=== PATIENT | male | born 1965 | race Caucasian/White ===

== ENCOUNTER 2017-01-16 08:29 | Emergency (ER) | payer SELFPAY ==
[~2017-01-16] VITALS: Ht 175.3 cm; Wt 79.5 kg
[~2017-01-16 08:29] MED LIST: ADVIL200 MG PO; ASPIRIN 32325 MG/TAB PO; ASPIRIN 81M81 MG/TA2 PO; EFFIENT10 MG PO; IMDUR 30MG30 MG/TAB PO; KLONOPIN 0.5MG0.5 MG PO; LOPRESSOR 550 MG/TAB PO; LORTAB 5/500 501 TAB PO; MOTRIN 800800 MG/TAB PO; MOTRIN800 MG PO; NAPROSYN500 MG PO; NO HOME MEDICATIONS; NORCO 325 MG-51 TAB PO; PERCOCET 5/321 UDTAB PO; PLAVIX 75MG TAB75 MG PO; PRAVACHOL 40MG40 MG PO; PRIL40 PO; TOPROL XL 25MG25 MG PO; TOPROL XL 50MG50 MG PO; TOPROL XL50 MG PO; TYLENOL 500MG500 MG PO; VALIUM 5MG T5 MG/TAB PO; ZESTRIL2.5 MG PO; ZOCOR80 MG PO
[2017-01-16 08:31] VITALS: TEMP 98
[2017-01-16 09:22] LABS: PROTHROMBIN TIME 11.5 SECONDS (9.7-12.8)
[2017-01-16 09:31] LABS: ADJUSTED CALCIUM 9.5 mg/dL (8.4-10.2); ALBUMIN 4.3 gm/dL (3.5-5.0); BASO # 0.1 (0.0-0.2); BASO % 1.1 % (0.0-2.0); BILIRUBIN,TOTAL 0.9 mg/dL (0.0-1.0); CALCIUM 9.7 mg/dL (8.4-10.2); CREATININE, serum 1.14 mg/dL (0.66-1.25); EOS # 0.2 (0.0-0.7); EOS % 1.7 % (0-4.0); GRAN % 73.3 % (42.2-75.2); HEMATOCRIT 48.6 % (42.0-52.0); HEMOGLOBIN 16.2 g/dl (13.5-18.0); LYMPH # 1.7 (1.2-3.4); LYMPH % 17.5 % (20.0-51.0); MEAN CELL VOLUME 85 fl (80.0-100.0); MEAN CORPUSCULAR HEMOGLOBIN 28 pg (27.0-31.0); MEAN CORPUSCULAR HGB CONC 33 g/dl (33.0-37.0); MEAN PLATELET VOLUME 10.4 fl (7.4-10.4); MONO # 0.6 (0.1-0.6); MONO % 6.2 % (1.7-9.3); PLATELET COUNT 284 K/mm3 (130-400); POTASSIUM 4.9 mmol/L (3.4-5.0); RED BLOOD COUNT 5.71 M/mm3 (4.20-5.60); REDCELL DISTRIBUTION WIDTH-CV 13.7 % (11.5-14.5); TOTAL PROTEIN 7.7 gm/dL (6.4-8.2); WHITE BLOOD COUNT 9.5 K/mm3 (4.8-10.8)
[2017-01-16 09:45] LABS: TROPONIN-I 0.331 ng/mL (0.000-0.034)
[2017-01-16 09:55] LABS: ERYTHROCYTE SEDIMENTATION RATE 7 mm/hr (0-15)
[2017-01-16 12:07] VITALS: BP 151/77; PULSE 73
[2017-01-17] MEDS ORDERED: ASPIRIN 81M81 MG/TA2 PO (12:50)
[2017-01-17] MEDS ORDERED: IMDUR 60MG60 MG/TAB PO (12:50)
[2017-01-17] MEDS ORDERED: NITROSTAT0.4 MG/TAB SL (12:50)
[2017-01-17] MEDS ORDERED: LIPITOR 80MG80 MG PO (12:51)
== END 2017-01-16 10:41 | disposition left against medical advice (07) ==
LOC: COL.ER 08:29
PROVIDERS: Emergency Medicine
DX: I21.4 Non-ST elevation (NSTEMI) myocardial infarction (principal); Z53.21 Procedure and treatment not carried out due to patient leaving prior to being seen by health care provider; Z79.02 Long term (current) use of antithrombotics/antiplatelets; Z79.82 Long term (current) use of aspirin; Z98.61 Coronary angioplasty status; I25.2 Old myocardial infarction

== ENCOUNTER 2017-01-17 08:37 | Day surgery (SDC) | payer SELFPAY ==
[~2017-01-17] VITALS: Ht 175.3 cm; Wt 81.8 kg
[2017-01-17] VITALS (10 sets, daily range): BP systolic 107–137; BP diastolic 79–91; PULSE 72–89; TEMP 97.6
[2017-01-17] MEDS ORDERED: NITROSTAT0.4 MG/TAB SL (12:50)
[2017-01-17] MEDS ORDERED: ASPIRIN 81M81 MG/TA2 PO (12:50)
[2017-01-17] MEDS ORDERED: IMDUR 60MG60 MG/TAB PO (12:50)
[2017-01-17] MEDS ORDERED: LIPITOR 80MG80 MG PO (12:51)
== END 2017-01-17 15:49 | disposition home or self-care (01) ==
LOC: COL.RAD 08:37
DX: I21.4 Non-ST elevation (NSTEMI) myocardial infarction (principal); I25.118 Atherosclerotic heart disease of native coronary artery with other forms of angina pectoris; I10 Essential (primary) hypertension; E78.5 Hyperlipidemia, unspecified; Z79.82 Long term (current) use of aspirin; Z79.899 Other long term (current) drug therapy; Z87.891 Personal history of nicotine dependence; Z95.5 Presence of coronary angioplasty implant and graft
CPT/HCPCS: J2250; J3010; Q9967

== ENCOUNTER 2017-05-23 12:53 | Emergency (ER) | payer SELFPAY ==
[~2017-05-23] VITALS: Ht 172.7 cm; Wt 77.3 kg
[~2017-05-23 12:53] MED LIST changes: +IMDUR 60MG60 MG/TAB PO; +LIPITOR 80MG80 MG PO; +NITROSTAT0.4 MG/TAB SL
[2017-05-23 12:55] VITALS: BP 141/88; TEMP 98.5
[2017-05-23 14:25] LABS: C-REACTIVE PROTEIN 1.6 mg/dL (0.0-0.9); CALCIUM 9.9 mg/dL (8.4-10.2); CREATININE, serum 1.1 mg/dL (0.66-1.25); HEMATOCRIT 45.4 % (42.0-52.0); HEMOGLOBIN 15.3 g/dl (13.5-18.0); MEAN CELL VOLUME 84 fl (80.0-100.0); MEAN CORPUSCULAR HEMOGLOBIN 28 pg (27.0-31.0); MEAN CORPUSCULAR HGB CONC 34 g/dl (33.0-37.0); MEAN PLATELET VOLUME 10.9 fl (7.4-10.4); PLATELET COUNT 254 K/mm3 (130-400); POTASSIUM 4.2 mmol/L (3.4-5.0); RED BLOOD COUNT 5.41 M/mm3 (4.20-5.60); REDCELL DISTRIBUTION WIDTH-CV 13.3 % (11.5-14.5)
[2017-05-23] MEDS ORDERED: NORCO 325 MG-51 TAB PO (14:42)
[2017-05-23] MEDS ORDERED: FLEXERIL 1010 MG/TAB PO (14:42)
[2017-05-23] MEDS ORDERED: ZOFRAN 4MG T4 MG/TAB PO (15:03)
[2017-05-23 15:07] VITALS: PULSE 84
== END 2017-05-23 15:07 | disposition home or self-care (01) ==
LOC: COL.ER 12:53
PROVIDERS: Physician Assistant Medical
DX: M25.511 Pain in right shoulder (principal); K21.9 Gastro-esophageal reflux disease without esophagitis; F17.210 Nicotine dependence, cigarettes, uncomplicated; Z79.02 Long term (current) use of antithrombotics/antiplatelets; Z95.9 Presence of cardiac and vascular implant and graft, unspecified
CPT/HCPCS: J1885; J2360

== ENCOUNTER 2017-05-26 09:20 | Emergency (ER) | payer SELFPAY ==
[~2017-05-26] VITALS: Ht 172.7 cm; Wt 77.3 kg
[~2017-05-26 09:20] MED LIST changes: +FLEXERIL 1010 MG/TAB PO; +ZOFRAN 4MG T4 MG/TAB PO
[2017-05-26 09:25] VITALS: TEMP 98.1
[2017-05-26 10:16] LABS: BASO # 0.1 (0.0-0.2); BASO % 0.9 % (0.0-2.0); EOS # 0.1 (0.0-0.7); EOS % 0.9 % (0-4.0); GRAN # 7.2 (1.4-6.5); GRAN % 81.2 % (42.2-75.2); HEMATOCRIT 45.6 % (42.0-52.0); HEMOGLOBIN 14.9 g/dl (13.5-18.0); LYMPH % 11.5 % (20.0-51.0); MEAN CELL VOLUME 86 fl (80.0-100.0); MEAN CORPUSCULAR HEMOGLOBIN 28 pg (27.0-31.0); MEAN CORPUSCULAR HGB CONC 33 g/dl (33.0-37.0); MEAN PLATELET VOLUME 10.7 fl (7.4-10.4); MONO # 0.5 (0.1-0.6); MONO % 5.3 % (1.7-9.3); PLATELET COUNT 236 K/mm3 (130-400); RED BLOOD COUNT 5.29 M/mm3 (4.20-5.60); REDCELL DISTRIBUTION WIDTH-CV 13.2 % (11.5-14.5); WHITE BLOOD COUNT 8.9 K/mm3 (4.8-10.8)
[2017-05-26 10:33] LABS: ADJUSTED CALCIUM 9.3 mg/dL (8.4-10.2); ALANINE AMINOTRANSFERASE 48 U/L (21-72); ALBUMIN 4.1 gm/dL (3.5-5.0); ALKALINE PHOSPHATASE 75 U/L (50-136); ANION GAP 10 mmol/L (7-16); BILIRUBIN,TOTAL 0.6 mg/dL (0.0-1.0); BLOOD UREA NITROGEN 11 mg/dL (9-20); CALCIUM 9.4 mg/dL (8.4-10.2); CARBON DIOXIDE 25 mmol/L (22-30); CHLORIDE 104 mmol/L (98-107); CREATININE, serum 0.96 mg/dL (0.66-1.25); GLUCOSE 101 mg/dL (74-106); POTASSIUM 4.7 mmol/L (3.4-5.0); SODIUM 139 mmol/L (137-145); TOTAL PROTEIN 7.2 gm/dL (6.4-8.2)
[2017-05-26 10:45] LABS: TROPONIN-I < 0.012 ng/mL (0.000-0.034)
[2017-05-26 11:53] LABS: PH 8 (5-8); SQUAMOUS EPITHELIAL None Seen /hpf; URINE APPEARANCE Clear; URINE BACTERIA None Seen /hpf; URINE BILIRUBIN Negative (NEGATIVE); URINE BLOOD Negative (NEGATIVE); URINE COLOR Straw; URINE GLUCOSE Negative (NEGATIVE); URINE KETONE Negative (NEGATIVE); URINE RBC None Seen /hpf; URINE UROBILINOGEN Negative (NEGATIVE); URINE WBC None Seen /hpf
[2017-05-26] MEDS ORDERED: ANTIVERT 25MG25 MG PO (13:17)
[2017-05-26 13:19] VITALS: BP 125/92; PULSE 62
== END 2017-05-26 13:21 | disposition home or self-care (01) ==
LOC: COL.ER 09:20
PROVIDERS: Emergency Medicine
DX: R42 Dizziness and giddiness (principal); I25.10 Atherosclerotic heart disease of native coronary artery without angina pectoris; Z79.02 Long term (current) use of antithrombotics/antiplatelets

== ENCOUNTER 2018-01-09 12:02 | Emergency (ER) | payer SELFPAY ==
[~2018-01-09] VITALS: Ht 172.7 cm; Wt 81.8 kg
[~2018-01-09 12:02] MED LIST changes: +ANTIVERT 25MG25 MG PO
[2018-01-09 12:07] VITALS: TEMP 98.5
[2018-01-09] MEDS ORDERED: CARDIZEM CD 18180 MG PO (12:13)
[2018-01-09] MEDS ORDERED: PRAVACHOL80 MG PO (12:14)
[2018-01-09] MEDS ORDERED: XANAX 0.5MG0.5 MG PO (12:15)
[2018-01-09 13:04] LABS: BASO % 0.3 % (0.0-2.0); EOS # 0.2 (0.0-0.7); EOS % 1.2 % (0-4.0); GRAN # 9.9 (1.4-6.5); GRAN % 78.6 % (42.2-75.2); HEMATOCRIT 41.6 % (42.0-52.0); HEMOGLOBIN 13.8 g/dl (13.5-18.0); LYMPH # 1.3 (1.2-3.4); LYMPH % 10.5 % (20.0-51.0); MEAN CELL VOLUME 87 fl (80.0-100.0); MEAN CORPUSCULAR HEMOGLOBIN 29 pg (27.0-31.0); MEAN CORPUSCULAR HGB CONC 33 g/dl (33.0-37.0); MONO # 1.2 (0.1-0.6); MONO % 9.1 % (1.7-9.3); PLATELET COUNT 247 K/mm3 (130-400); RED BLOOD COUNT 4.79 M/mm3 (4.20-5.60); REDCELL DISTRIBUTION WIDTH-CV 13.6 % (11.5-14.5)
[2018-01-09 13:17] LABS: ALBUMIN 3.9 gm/dL (3.5-5.0); BILIRUBIN,TOTAL 0.5 mg/dL (0.0-1.0); C-REACTIVE PROTEIN 3.6 mg/dL (0.0-0.9); CALCIUM 9.1 mg/dL (8.4-10.2); CREATININE, serum 1.08 mg/dL (0.66-1.25); POTASSIUM 4.2 mmol/L (3.4-5.0); TOTAL PROTEIN 6.8 gm/dL (6.4-8.2)
[2018-01-09 13:29] LABS: TROPONIN-I 1.56 ng/mL (0.000-0.034)
[2018-01-09 13:37] LABS: ERYTHROCYTE SEDIMENTATION RATE 10 mm/hr (0-30)
[2018-01-09] MEDS ORDERED: NORCO 325 MG-51 TAB PO (14:26)
[2018-01-09 14:38] VITALS: BP 111/67; PULSE 47
== END 2018-01-09 14:39 | disposition home or self-care (01) ==
LOC: COL.ER 12:02
PROVIDERS: Emergency Medicine
DX: R51 Headache (principal); R07.9 Chest pain, unspecified; I10 Essential (primary) hypertension; I25.10 Atherosclerotic heart disease of native coronary artery without angina pectoris; E78.00 Pure hypercholesterolemia, unspecified; F17.210 Nicotine dependence, cigarettes, uncomplicated; Z79.82 Long term (current) use of aspirin; Z79.02 Long term (current) use of antithrombotics/antiplatelets
CPT/HCPCS: J1170; J2405; J7030

== ENCOUNTER → 2018-01-15 | Outpatient (CLI) | payer OTHER ==
[~2018-01-15] MED LIST changes: +CARDIZEM CD 18180 MG PO; +PRAVACHOL80 MG PO; +XANAX 0.5MG0.5 MG PO
== END ==
LOC: COL.RAD 11:39
DX: J98.4 Other disorders of lung (principal); R91.8 Other nonspecific abnormal finding of lung field
CPT/HCPCS: Q9967

== ENCOUNTER 2018-01-30 08:52 | Day surgery (SDC) | payer OTHER ==
[~2018-01-30] VITALS: Ht 172.8 cm; Wt 80.0 kg
[2018-01-30 14:12] LABS: HEMATOCRIT 46.9 % (42.0-52.0); HEMOGLOBIN 15.2 g/dl (13.5-18.0); MEAN CELL VOLUME 88 fl (80.0-100.0); MEAN CORPUSCULAR HEMOGLOBIN 29 pg (27.0-31.0); MEAN CORPUSCULAR HGB CONC 32 g/dl (33.0-37.0); MEAN PLATELET VOLUME 10.4 fl (7.4-10.4); PLATELET COUNT 250 K/mm3 (130-400); RED BLOOD COUNT 5.34 M/mm3 (4.20-5.60); REDCELL DISTRIBUTION WIDTH-CV 13.3 % (11.5-14.5)
[2018-01-30 14:17] LABS: PROTHROMBIN TIME 11.5 SECONDS (9.7-12.8)
[2018-01-30 14:22] LABS: CALCIUM 9.5 mg/dL (8.4-10.2); CREATININE, serum 0.98 mg/dL (0.66-1.25); POTASSIUM 4.7 mmol/L (3.4-5.0)
[2018-01-30 14:36] VITALS: BP 135/91; PULSE 64; TEMP 97.9
== END 2018-01-30 16:53 | disposition home or self-care (01) ==
LOC: COL.CAR 08:52
PROVIDERS: Internal Medicine Interventional Cardiology
DX: R07.89 Other chest pain (principal); I25.10 Atherosclerotic heart disease of native coronary artery without angina pectoris; R51 Headache; E78.5 Hyperlipidemia, unspecified; K21.9 Gastro-esophageal reflux disease without esophagitis; I10 Essential (primary) hypertension; Z53.8 Procedure and treatment not carried out for other reasons; Z79.01 Long term (current) use of anticoagulants; Z95.5 Presence of coronary angioplasty implant and graft; Z87.891 Personal history of nicotine dependence

== ENCOUNTER 2018-02-10 05:41 | Day surgery (SDC) | payer OTHER ==
[2018-02-10] VITALS (8 sets, daily range): BP systolic 130–158; BP diastolic 83–101; PULSE 68–79; TEMP 97.9
[~2018-02-10] VITALS: Ht 172.7 cm; Wt 82.5 kg
[2018-02-10 06:52] LABS: HEMATOCRIT 41.5 % (42.0-52.0); HEMOGLOBIN 13.8 g/dl (13.5-18.0); MEAN CELL VOLUME 86 fl (80.0-100.0); MEAN CORPUSCULAR HEMOGLOBIN 29 pg (27.0-31.0); MEAN CORPUSCULAR HGB CONC 33 g/dl (33.0-37.0); PLATELET COUNT 219 K/mm3 (130-400); RED BLOOD COUNT 4.81 M/mm3 (4.20-5.60); REDCELL DISTRIBUTION WIDTH-CV 13.7 % (11.5-14.5)
[2018-02-10 06:59] LABS: INR 0.9 (0.8-3.0); PROTHROMBIN TIME 10.8 SECONDS (9.7-12.8)
[2018-02-10 07:17] LABS: CALCIUM 8.8 mg/dL (8.4-10.2); CREATININE, serum 0.96 mg/dL (0.66-1.25); POTASSIUM 4.4 mmol/L (3.4-5.0)
[2018-02-10] MEDS ORDERED: ZITHROMAX 250M250 MG PO (07:31)
[2018-02-10] MEDS ORDERED: IMDUR 60MG60 MG/TAB PO (11:53)
== END 2018-02-10 12:38 | disposition home or self-care (01) ==
LOC: COL.CAR 05:41
PROVIDERS: Internal Medicine Interventional Cardiology
DX: I25.10 Atherosclerotic heart disease of native coronary artery without angina pectoris (principal); E78.5 Hyperlipidemia, unspecified; K21.9 Gastro-esophageal reflux disease without esophagitis; Z79.82 Long term (current) use of aspirin; Z79.02 Long term (current) use of antithrombotics/antiplatelets; Z95.5 Presence of coronary angioplasty implant and graft; Z87.891 Personal history of nicotine dependence; Z88.8 Allergy status to other drugs, medicaments and biological substances; Z80.9 Family history of malignant neoplasm, unspecified
CPT/HCPCS: J2250; J3010; Q9967

== ENCOUNTER → 2018-07-30 | Outpatient (CLI) | payer OTHER ==
[~2018-07-30] MED LIST changes: +ZITHROMAX 250M250 MG PO
[2018-07-30 13:04] LABS: BASO # 0.1 (0.0-0.2); BASO % 0.6 % (0.0-2.0); EOS # 0.1 (0.0-0.7); EOS % 1.2 % (0-4.0); GRAN # 7.8 (1.4-6.5); GRAN % 80.7 % (42.2-75.2); HEMATOCRIT 45.4 % (42.0-52.0); HEMOGLOBIN 15.3 g/dl (13.5-18.0); LYMPH # 1.1 (1.2-3.4); LYMPH % 10.9 % (20.0-51.0); MEAN CELL VOLUME 85 fl (80.0-100.0); MEAN CORPUSCULAR HEMOGLOBIN 29 pg (27.0-31.0); MEAN CORPUSCULAR HGB CONC 34 g/dl (33.0-37.0); MEAN PLATELET VOLUME 10.6 fl (7.4-10.4); MONO # 0.6 (0.1-0.6); MONO % 6.3 % (1.7-9.3); PLATELET COUNT 259 K/mm3 (130-400); RED BLOOD COUNT 5.37 M/mm3 (4.20-5.60); REDCELL DISTRIBUTION WIDTH-CV 13.4 % (11.5-14.5)
[2018-07-30 13:14] LABS: ALBUMIN 4.4 gm/dL (3.5-5.0); BILIRUBIN,TOTAL 0.5 mg/dL (0.0-1.0); CALCIUM 9.7 mg/dL (8.4-10.2); CREATININE, serum 1.1 mg/dL (0.66-1.25); POTASSIUM 4.4 mmol/L (3.4-5.0); TOTAL PROTEIN 7.5 gm/dL (6.4-8.2)
[2018-07-30 13:44] LABS: THYROID STIMULATING HORMONE 1.42 uIU/mL (0.465-4.680)
== END ==
LOC: COL.LAB 12:18
PROVIDERS: Nurse Practitioner Family
DX: R10.84 Generalized abdominal pain (principal); R14.0 Abdominal distension (gaseous); R19.4 Change in bowel habit; R19.7 Diarrhea, unspecified

== ENCOUNTER 2018-08-11 12:54 | Day surgery (SDC) | payer OTHER ==
[~2018-08-11] VITALS: Ht 172.7 cm; Wt 82.2 kg
[2018-08-11 13:12] VITALS: BP 139/98; PULSE 69; TEMP 98.6
[2018-08-11] MEDS ORDERED: TOPROL XL 25MG25 MG PO (13:12)
[2018-08-11 14:20] VITALS: BP 111/72; PULSE 77
[2018-08-11 14:35] VITALS: BP 140/87; PULSE 63
[2018-08-11] MEDS ORDERED: IMODIUM A-D2 MG PO (14:35)
[2018-08-11 14:50] VITALS: BP 149/84; PULSE 79
== END 2018-08-11 15:05 | disposition home or self-care (01) ==
LOC: SDCO 12:54
DX: K52.832 Lymphocytic colitis (principal); K64.0 First degree hemorrhoids; E78.00 Pure hypercholesterolemia, unspecified; K21.9 Gastro-esophageal reflux disease without esophagitis; I25.10 Atherosclerotic heart disease of native coronary artery without angina pectoris; I25.2 Old myocardial infarction; Z95.5 Presence of coronary angioplasty implant and graft; Z79.82 Long term (current) use of aspirin; Z88.8 Allergy status to other drugs, medicaments and biological substances; Z87.891 Personal history of nicotine dependence; Z86.010 Personal history of colon polyps
CPT/HCPCS: J2704; J7030

== ENCOUNTER 2018-10-11 14:26 | Emergency (ER) | payer OTHER ==
[~2018-10-11] VITALS: Ht 175.3 cm; Wt 84.1 kg
[~2018-10-11 14:26] MED LIST changes: +IMODIUM A-D2 MG PO
[2018-10-11 14:31] VITALS: TEMP 97.9
[2018-10-11 14:47] LABS: BASO # 0.1 (0.0-0.2); BASO % 0.8 % (0.0-2.0); EOS # 0.1 (0.0-0.7); EOS % 1.2 % (0-4.0); GRAN # 7.2 (1.4-6.5); GRAN % 75.6 % (42.2-75.2); HEMATOCRIT 48.4 % (42.0-52.0); HEMOGLOBIN 16.3 g/dl (13.5-18.0); LYMPH # 1.5 (1.2-3.4); LYMPH % 15.6 % (20.0-51.0); MEAN CELL VOLUME 88 fl (80.0-100.0); MEAN CORPUSCULAR HEMOGLOBIN 30 pg (27.0-31.0); MEAN CORPUSCULAR HGB CONC 34 g/dl (33.0-37.0); MEAN PLATELET VOLUME 10.6 fl (7.4-10.4); MONO # 0.6 (0.1-0.6); MONO % 6.6 % (1.7-9.3); PLATELET COUNT 280 K/mm3 (130-400); RED BLOOD COUNT 5.52 M/mm3 (4.20-5.60); REDCELL DISTRIBUTION WIDTH-CV 13.2 % (11.5-14.5)
[2018-10-11 14:57] LABS: ALANINE AMINOTRANSFERASE 41 U/L (21-72); ALBUMIN 4.4 gm/dL (3.5-5.0); ALKALINE PHOSPHATASE 67 U/L (50-136); ANION GAP 6 mmol/L (7-16); AST,SGOT 24 U/L (15-37); BILIRUBIN,TOTAL 0.6 mg/dL (0.0-1.0); BLOOD UREA NITROGEN 13 mg/dL (9-20); CALCIUM 9.4 mg/dL (8.4-10.2); CARBON DIOXIDE 27 mmol/L (22-30); CHLORIDE 108 mmol/L (98-107); CREATININE, serum 1.17 mg/dL (0.66-1.25); GLUCOSE 114 mg/dL (74-106); LIPASE 137 U/L (23-300); POTASSIUM 4.4 mmol/L (3.4-5.0); SODIUM 142 mmol/L (137-145); TOTAL PROTEIN 7.5 gm/dL (6.4-8.2)
[2018-10-11 15:09] LABS: TROPONIN-I < 0.012 ng/mL (0.000-0.034)
[2018-10-11 18:40] VITALS: BP 142/97; PULSE 78
== END 2018-10-11 18:40 | disposition home or self-care (01) ==
LOC: COL.ER 14:26
PROVIDERS: Emergency Medicine
DX: R07.89 Other chest pain (principal); I10 Essential (primary) hypertension; I25.10 Atherosclerotic heart disease of native coronary artery without angina pectoris; F17.210 Nicotine dependence, cigarettes, uncomplicated; Z79.02 Long term (current) use of antithrombotics/antiplatelets; Z79.82 Long term (current) use of aspirin
CPT/HCPCS: J2270; Q9967

== ENCOUNTER 2019-06-26 12:20 | Emergency (ER) | payer OTHER ==
[~2019-06-26] VITALS: Ht 175.3 cm; Wt 79.5 kg
[~2019-06-26 12:20] MED LIST changes: -PRAVACHOL80 MG PO
[2019-06-26 12:50] VITALS: BP 136/76
[2019-06-26] MEDS ORDERED: CARDIZEM120 MG PO (13:25)
[2019-06-26] MEDS ORDERED: TESSALON P100 MG/CAP PO (13:58)
[2019-06-26] MEDS ORDERED: ZITHROMAX Z PA250 MG PO (13:58)
[2019-06-26] MEDS ORDERED: PROAIR HFA0.09 MG/AC IH (13:58)
[2019-06-26 14:35] VITALS: PULSE 75; TEMP 97.9
== END 2019-06-26 14:35 | disposition home or self-care (01) ==
LOC: COL.ER 12:20
DX: J20.9 Acute bronchitis, unspecified (principal); K21.9 Gastro-esophageal reflux disease without esophagitis; F17.210 Nicotine dependence, cigarettes, uncomplicated; I10 Essential (primary) hypertension; I25.10 Atherosclerotic heart disease of native coronary artery without angina pectoris; E78.5 Hyperlipidemia, unspecified; Z79.82 Long term (current) use of aspirin; Z98.890 Other specified postprocedural states; Z79.02 Long term (current) use of antithrombotics/antiplatelets

== ENCOUNTER 2020-01-01 17:42 | Emergency (ER) | payer OTHER ==
[~2020-01-01] VITALS: Ht 175.3 cm; Wt 100.0 kg
[~2020-01-01 17:42] MED LIST changes: +CARDIZEM120 MG PO; +PROAIR HFA0.09 MG/AC IH; +TESSALON P100 MG/CAP PO; +ZITHROMAX Z PA250 MG PO
[2020-01-01 17:50] VITALS: TEMP 98.2
[2020-01-01 18:27] LABS: ALANINE AMINOTRANSFERASE 31 U/L (21-72); ALBUMIN 4.7 gm/dL (3.5-5.0); ALKALINE PHOSPHATASE 78 U/L (50-136); ANION GAP 8 mmol/L (7-16); AST,SGOT 25 U/L (15-37); BILIRUBIN,TOTAL 0.6 mg/dL (0.0-1.0); BLOOD UREA NITROGEN 17 mg/dL (9-20); CALCIUM 9.5 mg/dL (8.4-10.2); CARBON DIOXIDE 30 mmol/L (22-30); CHLORIDE 104 mmol/L (98-107); CREATINE KINASE 80 U/L (55-170); CREATININE, serum 1.29 (0.66-1.25); GLUCOSE 135 mg/dL (74-106); SODIUM 142 mmol/L (137-145); TOTAL PROTEIN 7.7 gm/dL (6.4-8.2)
[2020-01-01 18:40] LABS: BASO # 0.1 (0.0-0.2); BASO % 1.1 % (0.0-2.0); EOS # 0.3 (0.0-0.7); EOS % 2.8 % (0-4.0); GRAN # 6.9 (1.4-6.5); GRAN % 67.2 % (42.2-75.2); HEMATOCRIT 48.2 % (42.0-52.0); LYMPH # 2.2 (1.2-3.4); LYMPH % 21.5 % (20.0-51.0); MEAN CELL VOLUME 86 fl (80.0-100.0); MEAN CORPUSCULAR HEMOGLOBIN 28 pg (27.0-31.0); MEAN CORPUSCULAR HGB CONC 33 g/dl (33.0-37.0); MEAN PLATELET VOLUME 10.8 fl (7.4-10.4); MONO # 0.7 (0.1-0.6); MONO % 7.1 % (1.7-9.3); PLATELET COUNT 340 K/mm3 (130-400); RED BLOOD COUNT 5.63 M/mm3 (4.20-5.60); REDCELL DISTRIBUTION WIDTH-CV 13.2 % (11.5-14.5); TROPONIN-I < 0.012 ng/mL (0.000-0.035)
[2020-01-01 18:42] LABS: PROTHROMBIN TIME 11.2 SECONDS (9.7-12.8)
[2020-01-01 21:07] VITALS: BP 139/91; PULSE 91
== END 2020-01-01 21:09 | disposition home or self-care (01) ==
LOC: COL.ER 17:42
PROVIDERS: Emergency Medicine
DX: F41.9 Anxiety disorder, unspecified (principal); R07.89 Other chest pain; I10 Essential (primary) hypertension; I25.10 Atherosclerotic heart disease of native coronary artery without angina pectoris; E78.5 Hyperlipidemia, unspecified; F17.210 Nicotine dependence, cigarettes, uncomplicated; Z95.9 Presence of cardiac and vascular implant and graft, unspecified; Z79.02 Long term (current) use of antithrombotics/antiplatelets; Z79.82 Long term (current) use of aspirin
CPT/HCPCS: J1885; J2060

== ENCOUNTER → 2020-08-14 | Outpatient (CLI) | payer OTHER | LOC: COL.RAD 13:36 | DX: R51.9 Headache, unspecified (principal); R11.0 Nausea | CPT/HCPCS: Q9967 ==

== ENCOUNTER → 2021-07-25 | Day surgery (SDC) | payer OTHER | LOC: COL.CAR 09:45 | DX: R07.9 Chest pain, unspecified (principal); R94.39 Abnormal result of other cardiovascular function study; Z53.8 Procedure and treatment not carried out for other reasons; Z20.822 Contact with and (suspected) exposure to COVID-19 ==

== ENCOUNTER 2021-11-05 08:33 | Emergency (ER) | payer SELFPAY ==
[~2021-11-05] VITALS: Ht 172.7 cm; Wt 79.5 kg
[2021-11-05 08:47] VITALS: TEMP 98
[2021-11-05] MEDS ORDERED: ZITHROMAX Z PA250 MG PO (10:07)
[2021-11-05] MEDS ORDERED: PREDNISONE20 MG PO (10:07)
[2021-11-05 10:20] VITALS: BP 153/108; PULSE 91
== END 2021-11-05 10:20 | disposition home or self-care (01) ==
LOC: COL.ER 08:33
DX: J20.9 Acute bronchitis, unspecified (principal); I10 Essential (primary) hypertension; E78.5 Hyperlipidemia, unspecified; I25.10 Atherosclerotic heart disease of native coronary artery without angina pectoris; Z87.891 Personal history of nicotine dependence; Z20.822 Contact with and (suspected) exposure to COVID-19; Z79.02 Long term (current) use of antithrombotics/antiplatelets; Z79.82 Long term (current) use of aspirin; Z79.899 Other long term (current) drug therapy